=== PATIENT | male | born 2005 | race Two or more races ===

== ENCOUNTER 2023-06-14 20:39 | Emergency (ER) | payer SELFPAY ==
[~2023-06-14] VITALS: Ht 177.8 cm; Wt 81.7 kg
[2023-06-14] MEDS ORDERED: TETANUS-DIPTH-ACEL PERTUSSIS 0.5ML SYR Tdap IM ONE (22:15)
[2023-06-14 22:32] VITALS: BP 111/64; PULSE 77; RESP 16; TEMP 98.2; O2SAT 99
[2023-06-14] MEDS ORDERED: BAC09TP TOP (22:47)
== END 2023-06-14 23:21 | disposition home or self-care (01) ==
LOC: ER 20:39
DX: S61.412A Laceration without foreign body of left hand, initial encounter (principal); W26.0XXA Contact with knife, initial encounter; Y93.89 Activity, other specified; Y92.89 Other specified places as the place of occurrence of the external cause; Y99.8 Other external cause status
CPT/HCPCS: 12002; 90471; 90715